=== PATIENT | female | born 1955 | race Caucasian/White ===

== ENCOUNTER 2018-07-11 10:13 | Outpatient (CLI) ==
[2014-05-28 09:34] VITALS: BMI 34.1
--- NOTE | 2018-07-11 13:43 | MRI ---
EXAM: MRI lumbar spine without IV contrast. DATE: 07/11/2018. HISTORY: Knot on the left side of the lower back. Lumbar synovial cyst. TECHNIQUE: Sagittal and axial T1W and T2W sequences of the lumbar spine along with sagittal IR and c oronal T2W sequences were obtained using 1.2 Shirley magnet. No IV contrast. Area of interest marked on the skin surface. COMPARISON: PA/lateral chest 01/10/2009. FINDINGS: There are five [id number] lumbar vertebra. Minor leftward curvature lumbar spine is present at L4-5. The 2.5 mm anterior subluxation of L4 relative to L5 is noted. No other subluxatio n, acute fracture, osseous malignancy, or pars interarticularis defect is demonstrated. Lumbar verte brae normal in height. Bone marrow signal is overall normal. T2W/T1W bright foci consistent with he mangiomas are identified in the L2 body (5 mm focus), L3 body (13 x 11 x 14 mm focus), and L4 body (6 x 6.7 x 8 mm focus). Minor disc space narrowing is detected at L4-5. Remaining intervertebral disc s are normal in height. No acute sacral fracture or stress reaction is identified. Patchy areas of T2W/T1W bright signal within the sacral ala are consistent with fatty infiltration. SI joints are un remarkable. Conus medullaris terminates at T12-L1. Visible spinal cord is normal. No retroperitoneal lymphadenopathy, paraspinal mass, or aortic aneurysm is detected. Psoas muscles a re normal. There is minor/mild bilateral posterior paraspinal muscle atrophy. Visible portions of t he liver, spleen, adrenal glands and left kidney reveal no distinct abnormality. A 3.8 x 3 x 3.7 cm T2W heterogeneously bright, T1W nearly isointense lesion is seen within the right renal sinus fat com plex. No bowel obstruction or malignancy is apparent. No subcutaneous mass or muscle lesion is dete cted near the level marked on the skin surface at the region of interest. Segmental analysis: T11-12: Normal. T12-L1: Normal. L1-2: Normal. L2-3: Minor left foraminal to far lateral disc bulge causes minimal/mild left foraminal narrowing. No central canal stenosis. L3-4: Minor consent disc bulge and minor/mild facet arthropathy cause mild central canal stenosis, m inor right foramen encroachment, and mild left foraminal stenosis. Left L3 nerve root may contact th e disc bulge near the lateral margin of the foramen. L4-5: Minimal anterolisthesis of L4, pseudodisc bulge, moderate right facet arthropathy, and mild le ft facet arthropathy cause triangulation of the canal, mild right foraminal stenosis, and mild/modera te narrowing at the left foraminal opening. Left L4 nerve root contacts the disc bulge near the late ral margin of the foramen. L5-S1: Normal, except for moderate right and mild left facet arthropathy. IMPRESSIONS: 1. Right renal mass (3.8 cm) suspicious for malignancy. Recommend CT scan or MRI without/with IV co ntrast using renal protocol for further evaluation. Urology consult recommended. 2. Lumbar spine minor leftward curvature, multilevel facet arthropathy (rachid. L4-5 and L5-S1), minor subluxation at L4-5, and minor DDD. 3. Multilevel lumbar foraminal stenoses. Left L3 and left L4 nerve roots appear to contact disc bul ges near the foramen, and could be sources for pain/radiculopathy. 4. 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 5. No subcutaneous mass or inflammation in the region of interest in the left lower back. Critical result: Renal mass finding discussed with Nellie Odonnell's business office assistant (Jackie) at 1335 hrs, 06/30.
--- NOTE | 2018-07-13 09:12 | MAMMO ---
EXAM: Bilateral digital screening mammogram (2-D and 3-D) History: Screening Comparison: Bilateral mammogram 06/13/2014 Findings: MLO and CC views of bilateral breasts demonstrate scattered fibroglandular breast parenchy ma. CAD was reviewed by the radiologist. Tomosynthesis was performed. Stable benign appearing nodu lar density within the right breast. There are no developing masses, no suspicious microcalcificatio ns and no architectural distortions Impression: Benign stable mammogram. Recommend followup routine screening mammography in 1 year. BIRADS 2
== END 2018-07-11 10:14 | disposition home or self-care (01) ==
LOC: RAD 10:13
PROVIDERS: ATTEND Nurse Practitioner Family
DX: Z12.31 Encounter for screening mammogram for malignant neoplasm of breast (principal); M71.38 Other bursal cyst, other site